=== PATIENT | male | born 1965 | race Two or more races ===

== ENCOUNTER 2024-06-16 09:08 | Outpatient (AMB) | payer BC, SELFPAY ==
[2024-06-16 09:20] VITALS: BP 134/75; PULSE 99; RESP 19; TEMP 36.4; O2SAT 99; BMI 36.4
--- NOTE | 2024-06-16 09:20 | PD.ORTHCLVIS ---
Vital signs 06/16/24 09:20 Height 1.7 m Height Method Stated Weight 105.29 kg Weight Measurement Method Standing Scale BMI 36.4 BP 134/75 H Blood Pressure Source Automatic Cuff Blood Pressure Location Right Upper Arm Position Sitting Respiration 19 Pulse 99 Pulse Source Monitor Temp 97.5 F Temp Source Temporal Artery Scan Pulse Oximetry (%) 99 Oxygen Delivery Method Room Air Med/Allergies Allergies & Medications Allergies No Known Allergies Allergy (Verified 06/16/24 09:23) Medication Reconciliation losartan 100 mg-hydrochlorothiazide 12.5 mg tablet 1 tab PO QDAY 04/06/24 [History Confirmed 06/16/24] meloxicam 15 mg tablet 15 mg PO QDAY 04/06/24 [History Confirmed 06/16/24] metoprolol succinate 25 mg capsule sprinkle, ext. release 24 hr 25 mg PO QDAY 04/06/24 [History Confirmed 06/16/24] acetaminophen 500 mg tablet (Acetaminophen Extra Strength) 1,000 mg (2 x 500 mg) PO Q6H PRN pain #90 tabs 04/11/24 [Rx Confirmed 06/16/24] aspirin 81 mg tablet,delayed release 81 mg PO BID #60 tabs 04/11/24 [Rx Confirmed 06/16/24] doxycycline hyclate 100 mg tablet 100 mg PO BID #14 tabs 04/11/24 [Rx Confirmed 06/16/24] gabapentin 300 mg capsule 300 mg PO .qhs #30 caps 04/11/24 [Rx Confirmed 06/16/24] oxycodone 5 mg tablet 5 mg PO Q6H PRN pain #28 tabs 04/11/24 [Rx Confirmed 06/16/24] sennosides 8.6 mg-docusate sodium 50 mg tablet (Senna-S) 1 tab-cap PO QDAY #30 tabs 04/11/24 [Rx Confirmed 06/16/24] Subjective Visit Visit for: follow up visit and knee (LEFT) Immunization / Flu Flu Vaccine in the Last 12 Months: No Flu Vaccine Exclusion Criteria: No Exclusion Criteria History of Present Illness Chief complaint: Right total knee replacement Patient is doing well status post right total knee replacement. He is 2 months from surgery. Previously had a stitch abscess which was removed and treated with Bactrim. He reports no pain at all and is using no assistive device. We last saw him 2 weeks ago and he reports that within the last week he noticed that the top aspect of his incision has been having issues. He reports that the skin is absent there. He reports that he is still smoking Pain Pain level (0-10): 0 Pain location: inside (medial) Associated signs & symptoms: none Ambulatory data Ambulatory device: none Treatments Improvement with previous injections: No Improvement with PT: No Improvement with NSAIDS: no Review of Systems Review of Systems: All systems negative unless otherwise noted in HPI. Exam Exam Patient is in no acute distress and is cooperative with the examination today. Patient has a normal mood and affect. Breathing is nonlabored. In no respiratory distress. Bilateral extremities were evaluated and demonstrates sensation intact to light touch. Palpable pedal pulses are present. No significant edema is present. Right knee incision demonstrates 2 areas that look quite strange. It almost looks like there is no skin but has underlying soft tissue present. There is no effusion in his knee and he has no pain at all which is quite strange. It almost looks like there is just no skin and it is dry. I wonder if this is a wound healing issue due to the patient's nicotine use. There is no erythema. Assessment and Plan Problem List (1) Status post total right knee replacement: Status: Acute Plan: Patient is a pleasant 59-year-old male status post right total knee replacement. He is doing well functionally. His incision actually looks quite strange. I actually discussed this case with 3 other orthopedic surgeons who all believe that this is either some kind of dermatological reaction to the glue. I am not sure but it does not appear that he has a deep infection as he has no pain. To be safe, we are ordering an ESR and CRP as well as a aspiration of his knee. We are also sending him to wound care. We will consider sending him to a middle school guidance counselor as the incision looks a little. We will hold off on doing his other knee. Office Procedures GNS Level of Care Nursing/Assessment Patient Status: Established Patient Nursing Assessment/Reassesment: Medication Reconciliation, Update PMH in EMR and Vital Signs Coordination of Care: Complex Care and Chronic Disease 1-5, Education Complex Pt/Fam, Consent,records obtained, informed consent, 1 Ins Authorization and Staff clarify orders Established Patient Charge Established Patient Point Assignment: 105 Established Patient Point Charge: EP Level 3 (80-115) Past Medical History Past Medical History Have you ever been diagnosed with any of the following: Neurological Problems Seizures: No Cardiology Problems Congestive Heart Failure: No Hypertension: Yes Respiratory Problems Chronic Obstructive Pulmonary Disease (COPD): No Sleep Apnea: Yes Smoking: No Smoking Cessation Counseling: No Smoking Exposure: No Tobacco Use: No Stomache/Intestinal Problems Obesity: Yes Genital/Urinary Problems Renal Disease: No Musculoskeletal Problems Arthritis: Yes Endocrine Problems Diabetes Mellitus Type 1: No Diabetes Mellitus Type 2: No Other Problems Hospitalization: No Shingles: No Blood Transfusions: No Blood Transfusion Reaction: No Anesthesia Reactions: No Chicken Pox: Yes Cancer: No
== END 2024-06-16 09:32 | disposition home or self-care (01) ==
LOC: HODSRG 09:08
PROVIDERS: PCP Family Medicine; Referring Provider Family Medicine; Supervising Provider Orthopaedic Surgery Adult Reconstructive Orthopaedic Surgery; Visit Provider Orthopaedic Surgery Adult Reconstructive Orthopaedic Surgery
DX: Z96.651 Presence of right artificial knee joint (principal)
CPT/HCPCS: 99213; G0463

== ENCOUNTER 2024-07-15 10:06 | Outpatient (AMB) | payer BC, SELFPAY ==
[2024-07-15 10:26] VITALS: BP 189/92; PULSE 77; RESP 19; TEMP 36.4; O2SAT 99; BMI 37.3
--- NOTE | 2024-07-15 10:26 | ORTHONT_ITS ---
Vital signs 07/15/24 10:26 Height 1.7 m Height Method Stated Weight 107.757 kg Weight Measurement Method Standing Scale BMI 37.3 BP 189/92 H Blood Pressure Source Automatic Cuff Blood Pressure Location Right Upper Arm Position Sitting Respiration 19 Pulse 77 Pulse Source Monitor Temp 97.5 F Temp Source Temporal Artery Scan Pulse Oximetry (%) 99 Oxygen Delivery Method Room Air Med/Allergies Allergies & Medications Allergies No Known Allergies Allergy (Verified 07/15/24 10:27) Medication Reconciliation losartan 100 mg-hydrochlorothiazide 12.5 mg tablet 1 tab PO QDAY 04/06/24 [History Confirmed 07/15/24] meloxicam 15 mg tablet 15 mg PO QDAY 04/06/24 [History Confirmed 07/15/24] metoprolol succinate 25 mg capsule sprinkle, ext. release 24 hr 25 mg PO QDAY 04/06/24 [History Confirmed 07/15/24] acetaminophen 500 mg tablet (Acetaminophen Extra Strength) 1,000 mg (2 x 500 mg) PO Q6H PRN pain #90 tabs 04/11/24 [Rx Confirmed 07/15/24] aspirin 81 mg tablet,delayed release 81 mg PO BID #60 tabs 04/11/24 [Rx Confirmed 07/15/24] doxycycline hyclate 100 mg tablet 100 mg PO BID #14 tabs 04/11/24 [Rx Confirmed 07/15/24] gabapentin 300 mg capsule 300 mg PO .qhs #30 caps 04/11/24 [Rx Confirmed 07/15/24] oxycodone 5 mg tablet 5 mg PO Q6H PRN pain #28 tabs 04/11/24 [Rx Confirmed 07/15/24] sennosides 8.6 mg-docusate sodium 50 mg tablet (Senna-S) 1 tab-cap PO QDAY #30 tabs 04/11/24 [Rx Confirmed 07/15/24] Subjective Visit Visit for: follow up visit, post op #2 and knee (RIGHT) Immunization / Flu Flu Vaccine in the Last 12 Months: No Flu Vaccine Exclusion Criteria: No Exclusion Criteria History of Present Illness Chief complaint: Right total knee replacement Patient is doing well status post right total knee replacement. Patient is 3 months post right total knee replacement is doing fantastic. The incisions healed up wonderfully. He reports the left knee is bothering him and is affecting quality of life and happiness. Send multiple injections and anti- inflammatories Pain Pain level (0-10): 0 Pain location: inside (medial) Associated signs & symptoms: none Ambulatory data Ambulatory device: none Treatments Improvement with previous injections: No Improvement with PT: No Improvement with NSAIDS: no Review of Systems Review of Systems: All systems negative unless otherwise noted in HPI. Exam Exam Patient is in no acute distress and is cooperative with the examination today. Patient has a normal mood and affect. Breathing is nonlabored. In no respiratory distress. Bilateral extremities were evaluated and demonstrates sensation intact to light touch. Palpable pedal pulses are present. No significant edema is present. Right knee incision is clean dry and intact. Left knee demonstrates varus deformity of 10 degrees. There Is significant tenderness to palpation medially The left knee demonstrate significant arthritis with medial joint space loss and osteophytes. There is significant varus deformity Assessment and Plan Problem List (1) Status post total right knee replacement: Status: Acute Plan: Patient is a pleasant 59-year-old male status post right total knee replacement. He is doing well. He had some delayed healing due to eczema and the dermatologic reaction on the right. The right knee is now healed up wonderfully. The left knee is affecting his quality life and happiness. He has tried injections and anti-inflammatories and would like to get this replaced. We thus discussed total knee replacement on the left is a reasonable option The nature and purpose of the total knee replacement, alternative method(s) of treatment, the material risks involved, and the possibility of complications were fully explained to the patient. The patient does NOT have any of the following contraindications to TKA: - Active infection of the knee joint, OR - Active systemic bacteremia, OR - Active skin infection or open wound at surgical site, OR - Neuropathic arthritis, OR - Severe, rapidly progressive neurological disease, OR - Severe medical condition that makes risks of surgery outweigh the potential benefit The patient was told the most common risks and complications associated with a total knee replacement include, but are not limited to: blood clots in the leg, fatal pulmonary embolism, dislocation of the prosthesis, intraoperative and postoperative fractures of the femur or tibia, infection, failure of the prosthesis or grafting materials, complications from anesthesia, reactions to blood transfusions, postoperative leg length inequality, instability of the knee replacement, nerve damage or injury, vascular injury, delayed wound healing, infection, other injury or even . In addition, there are risks associated with anesthesia given during this operation. Also, the patient was told that after undergoing a total knee replacement there may still be persistent pain or disability. The patient was informed that the success of this operation in part depends upon the mechanical devices which are going to be implanted and that these devices can fail or malfunction, and may need to be repaired or replaced and there are no guarantees as to the longevity of this device or its parts and that it or its parts could fail prematurely. The patient was also notified that during the course of surgery, there may be a need to use bone graft from donors, and that any bone graft used will be carefully screened for communicable diseases, including AIDS, hepatitis, Beka-Creutzfeldt, or other diseases, but despite the screening procedures, there is a small chance that they could contract one of these diseases. Finally, the patient was asked to follow completely and fully with all advice and recommended treatments, and that recovery and ultimate outcome are affected by their compliance with recommended treatment. We discussed the risks, benefits and treatment alternatives, and the patient is interested in proceeding with surgery. We will try to set this up as expeditiously as possible. Office Procedures GNS Level of Care Nursing/Assessment Patient Status: Established Patient Nursing Assessment/Reassesment: Medication Reconciliation, Update PMH in EMR and Vital Signs Coordination of Care: Complex Care and Chronic Disease 1-5, Education Complex Pt/Fam, Consent,records obtained, informed consent, Results/Orders obtained and Staff clarify orders Established Patient Charge Established Patient Point Assignment: 95 Established Patient Point Charge: EP Level 3 (80-115) Past Medical History Past Medical History Have you ever been diagnosed with any of the following: Neurological Problems Seizures: No Cardiology Problems Congestive Heart Failure: No Hypertension: Yes Respiratory Problems Chronic Obstructive Pulmonary Disease (COPD): No Sleep Apnea: Yes Smoking: No Smoking Cessation Counseling: No Smoking Exposure: No Tobacco Use: No Stomache/Intestinal Problems Obesity: Yes Genital/Urinary Problems Renal Disease: No Musculoskeletal Problems Arthritis: Yes Endocrine Problems Diabetes Mellitus Type 1: No Diabetes Mellitus Type 2: No Other Problems Hospitalization: No Shingles: No Blood Transfusions: No Blood Transfusion Reaction: No Anesthesia Reactions: No Chicken Pox: Yes Cancer: No
== END 2024-07-15 10:48 | disposition home or self-care (01) ==
LOC: HODSRG 10:06
PROVIDERS: PCP Family Medicine; Referring Provider Family Medicine; Supervising Provider Orthopaedic Surgery Adult Reconstructive Orthopaedic Surgery; Visit Provider Orthopaedic Surgery Adult Reconstructive Orthopaedic Surgery
DX: Z96.651 Presence of right artificial knee joint (principal); I10 Essential (primary) hypertension; G47.30 Sleep apnea, unspecified
CPT/HCPCS: 99213; G0463

== ENCOUNTER → 2024-09-08 | Outpatient (CLI) | payer BC, SELFPAY ==
--- NOTE | 2024-09-08 08:30 | XR_ITS ---
Examination: CT left lower extremity, without contrast. 2-D sagittal reconstructions. 2-D coronal reconstructions. 3-D reconstructions. Date and time of exam:September 08, 2024 at 0824 hours INDICATIONS: Left knee osteoarthritis left knee pain 12 years CTDI: vol (mGy):12.8 DLP: (mGycm):934 Technique: Multiple 1.25 mm axial sections of the left lower extremity without intravenous contrast have been obtained. 2-D sagittal and coronal reconstructions have been obtained. 3-D reconstructions have been obtained. Low dose protocols were performed. One or more of the following dose reduction techniques were used; automated exposure control, adjustment of the mA and/or KV according to patient size, use of iterative reconstruction technique. 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
== END | disposition home or self-care (01) ==
PROVIDERS: PCP Family Medicine; Referring Provider Orthopaedic Surgery Adult Reconstructive Orthopaedic Surgery; Visit Provider Orthopaedic Surgery Adult Reconstructive Orthopaedic Surgery
DX: M17.12 Unilateral primary osteoarthritis, left knee (principal); M25.862 Other specified joint disorders, left knee
CPT/HCPCS: 73700

== ENCOUNTER 2024-09-13 15:21 | Outpatient (AMB) | payer BC, SELFPAY ==
[2024-09-13 15:36] VITALS: BP 174/93; PULSE 98; RESP 18; TEMP 37.1; O2SAT 98; BMI 37.8
--- NOTE | 2024-09-13 15:36 | ORTHONT_ITS ---
Vital signs 09/13/24 15:36 Height 1.7 m Height Method Stated Weight 109.117 kg Weight Measurement Method Standing Scale BMI 37.8 BP 174/93 H Blood Pressure Source Automatic Cuff Blood Pressure Location Right Upper Arm Position Sitting Respiration 18 Pulse 98 Pulse Source Monitor Temp 98.7 F Temp Source Temporal Artery Scan Pulse Oximetry (%) 98 Oxygen Delivery Method Room Air Med/Allergies Allergies & Medications Allergies No Known Allergies Allergy (Verified 09/13/24 15:37) Medication Reconciliation losartan 100 mg-hydrochlorothiazide 12.5 mg tablet 1 tab PO QDAY 04/06/24 [History Confirmed 09/13/24] meloxicam 15 mg tablet 15 mg PO QDAY 04/06/24 [History Confirmed 09/13/24] metoprolol succinate 25 mg capsule sprinkle, ext. release 24 hr 25 mg PO QDAY 04/06/24 [History Confirmed 09/13/24] acetaminophen 500 mg tablet (Acetaminophen Extra Strength) 1,000 mg (2 x 500 mg) PO Q6H PRN pain #90 tabs 04/11/24 [Rx Confirmed 09/13/24] aspirin 81 mg tablet,delayed release 81 mg PO BID #60 tabs 04/11/24 [Rx Confirmed 09/13/24] doxycycline hyclate 100 mg tablet 100 mg PO BID #14 tabs 04/11/24 [Rx Confirmed 09/13/24] gabapentin 300 mg capsule 300 mg PO .qhs #30 caps 04/11/24 [Rx Confirmed 09/13/24] oxycodone 5 mg tablet 5 mg PO Q6H PRN pain #28 tabs 04/11/24 [Rx Confirmed 09/13/24] sennosides 8.6 mg-docusate sodium 50 mg tablet (Senna-S) 1 tab-cap PO QDAY #30 tabs 04/11/24 [Rx Confirmed 09/13/24] Exam Exam Patient is in no acute distress and is cooperative with the examination today. Patient has a normal mood and affect. Breathing is nonlabored. In no respiratory distress. Bilateral extremities were evaluated and demonstrates sensation intact to light touch. Palpable pedal pulses are present. No significant edema is present. Right knee incision is clean dry and intact. Left knee demonstrates varus deformity of 10 degrees. There Is significant tenderness to palpation medially The left knee demonstrate significant arthritis with medial joint space loss and osteophytes. There is significant varus deformity Assessment and Plan Problem List (1) Status post total right knee replacement: Status: Acute Plan: Patient is a pleasant 59-year-old male status post right total knee replacement. He is doing well. He had some delayed healing due to eczema and the dermatologic reaction on the right. The right knee is now healed up wonderfully. The left knee is affecting his quality life and happiness. He has tried injections and anti-inflammatories and would like to get this replaced. We thus discussed total knee replacement on the left is a reasonable option The nature and purpose of the total knee replacement, alternative method(s) of treatment, the material risks involved, and the possibility of complications were fully explained to the patient. The patient does NOT have any of the following contraindications to TKA: - Active infection of the knee joint, OR - Active systemic bacteremia, OR - Active skin infection or open wound at surgical site, OR - Neuropathic arthritis, OR - Severe, rapidly progressive neurological disease, OR - Severe medical condition that makes risks of surgery outweigh the potential benefit The patient was told the most common risks and complications associated with a total knee replacement include, but are not limited to: blood clots in the leg, fatal pulmonary embolism, dislocation of the prosthesis, intraoperative and postoperative fractures of the femur or tibia, infection, failure of the prosthesis or grafting materials, complications from anesthesia, reactions to blood transfusions, postoperative leg length inequality, instability of the knee replacement, nerve damage or injury, vascular injury, delayed wound healing, infection, other injury or even . In addition, there are risks associated with anesthesia given during this operation. Also, the patient was told that after undergoing a total knee replacement there may still be persistent pain or disability. The patient was informed that the success of this operation in part depends upon the mechanical devices which are going to be implanted and that these devices can fail or malfunction, and may need to be repaired or replaced and there are no guarantees as to the longevity of this device or its parts and that it or its parts could fail prematurely. The patient was also notified that during the course of surgery, there may be a need to use bone graft from donors, and that any bone graft used will be carefully screened for communicable diseases, including AIDS, hepatitis, Beka-Creutzfeldt, or other diseases, but despite the screening procedures, there is a small chance that they could contract one of these diseases. Finally, the patient was asked to follow completely and fully with all advice and recommended treatments, and that recovery and ultimate outcome are affected by their compliance with recommended treatment. We discussed the risks, benefits and treatment alternatives, and the patient is interested in proceeding with surgery. We will try to set this up as expeditiously as possible. Office Procedures GNS Level of Care Nursing/Assessment Patient Status: Established Patient Nursing Assessment/Reassesment: Medication Reconciliation, Update PMH in EMR and Vital Signs Coordination of Care: Complex Care and Chronic Disease 1-5, Education Complex Pt/Fam, Consent,records obtained, informed consent, 2-3 Insurance Autorizations needed, Lab and Imaging orders, Results/Orders obtained and Staff clarify orders Established Patient Charge Established Patient Point Assignment: 130 Established Patient Point Charge: Level 4 (120-155) MA Intake Visit Data Collection New Patient or Established: Established Patient (seen at [facility] within 3 years) Reason for Visit:: PRE-OPT Seen by Clinical Staff ONLY (RN/MA): No Verbal consent obtained for Telemed visit?: No Mechanic Foreman Required: No PCP or OBGYN visit in last 3 months: Yes Hx Now: No Do You Feel Safe at Home: Yes Authorities Contacted: N/A Questionairres Past Medical History Past Medical History Have you ever been diagnosed with any of the following: Neurological Problems Seizures: No Cardiology Problems Congestive Heart Failure: No Hypertension: Yes Respiratory Problems Chronic Obstructive Pulmonary Disease (COPD): No Sleep Apnea: Yes Smoking: No Smoking Cessation Counseling: No Smoking Exposure: No Tobacco Use: No Stomache/Intestinal Problems Obesity: Yes Genital/Urinary Problems Renal Disease: No Musculoskeletal Problems Arthritis: Yes Endocrine Problems Diabetes Mellitus Type 1: No Diabetes Mellitus Type 2: No Other Problems Hospitalization: No Shingles: No Blood Transfusions: No Blood Transfusion Reaction: No Anesthesia Reactions: No Chicken Pox: Yes Cancer: No Subjective Visit Visit for: follow up visit and knee Immunization / Flu Flu Vaccine in the Last 12 Months: Yes Flu Vaccine Exclusion Criteria: No Exclusion Criteria History of Present Illness Chief complaint: left knee pain Patient is doing well status post right total knee replacement. He is 2 months from surgery. Previously had a stitch abscess which was removed and treated with Bactrim. He reports no pain at all and is using no assistive device. We last saw him 2 weeks ago and he reports that within the last week he noticed that the top aspect of his incision has been having issues. He reports that the skin is absent there. He reports that he is still smoking Pain Pain level (0-10): 5 Pain duration: ALL DAY Pain location: inside (medial), outside (lateral) and anterior Pain quality: sharp, dull and aching Pain timing: increases with activity Associated signs & symptoms: weakness Ambulatory data Ambulatory device: none Treatments Improvement with previous injections: No Improvement with PT: No Improvement with NSAIDS: no Review of Systems Review of Systems: All systems negative unless otherwise noted in HPI.
== END 2024-09-13 16:23 | disposition home or self-care (01) ==
LOC: HODSRG 15:21
PROVIDERS: PCP Family Medicine; Referring Provider Family Medicine; Supervising Provider Orthopaedic Surgery Adult Reconstructive Orthopaedic Surgery; Visit Provider Orthopaedic Surgery Adult Reconstructive Orthopaedic Surgery
DX: Z96.651 Presence of right artificial knee joint (principal); I10 Essential (primary) hypertension; G47.30 Sleep apnea, unspecified
CPT/HCPCS: 99214; G0463

== ENCOUNTER 2024-10-03 05:50 | Day surgery (SDC) | payer BC, SELFPAY ==
--- NOTE | 2024-09-30 07:41 | EKG_ITS ---
[facility] Test Date: 2024-09-30 Pat Name: CASEY PHILLIP Department: Room: - Gender: Male Last Puller: ROSA : 1965 Requested By: Schuyler Mendoza Order Number: [id number] Reading MD: Schuyler Mendoza Measurements Intervals [place] Rate: 70 P: 41 KS: 219 QRS: 3 QRSD: 92 T: 33 QT: 382 QTc: 415 Interpretive Statements SINUS RHYTHM WITH FIRST DEGREE AV BLOCK WITH OCCASIONAL VENTRICULAR PREMATURE COMPLEXES No previous ECG available for comparison /store/S0/[id number]/[id number]
[2024-09-30 07:42] VITALS: BMI 37.0
[2024-09-30 08:59] LABS: Basophils # (Auto) 0.1 Thou/mm3 (0.0-0.2); Basophils % (Auto) 1 % (0-2.5); Eosinophils # (Auto) 0.1 Thou/mm3 (0.0-0.5); Eosinophils % (Auto) 2 % (0-10); Hemoglobin 13.5 g/dL (13.5-16.0); Immature Granulocytes % (Auto) 2 % (0-0); Immature Granulocytes Auto 0.16 Thou/mm3 (0.00-0.00); Lymphocytes # (Auto) 1.9 Thou/mm3 (1.0-4.8); Lymphocytes % (Auto) 27 % (10-50); Mean Corpuscular HGB Conc 36.5 g/dl (31.0-37.0); Mean Corpuscular Hemoglobin 36.3 pg (25.0-35.0); Mean Corpuscular Volume 100 fL (80-100); Monocytes # (Auto) 0.8 Thou/mm3 (0.0-0.8); Monocytes % (Auto) 11 % (0-12); Neutrophils # (Auto) 3.9 Thou/mm3 (1.8-7.7); Neutrophils % (Auto) 57 % (37-80); Nucleated Red Blood Cell % 0 /100 WBC (0); Platelet Count 214 Thou/mm3 (140-440); Red Blood Count 3.72 Miln/mm3 (4.50-5.90); White Blood Count 6.9 Thou/mm3 (3.8-10.6)
[2024-09-30 09:12] LABS: Alanine Aminotransferase 13 U/L (10-49); Albumin, Serum 4.3 gm/dL (3.5-5.0); Albumin/Globulin Ratio 1.4 (1.2-2.2); Alkaline Phosphatase 77 U/L (46-116); Anion Gap 5 (7-16); Aspartate Amino Transferase 20 U/L (0-34); BUN/Creatinine Ratio 7 Ratio (12-20); Bilirubin,Total 0.8 mg/dL (0.3-1.2); Blood Urea Nitrogen 7 mg/dL (9-23); Calcium 9.2 mg/dL (8.3-10.6); Calcium (Corrected) 9.2 mg/dL (8.5-10.1); Carbon Dioxide 26.6 mMol/L (20.0-31.0); Chloride 93 mMol/L (98-107); Glucose 100 mg/dL (74-106); Osmolality,Calculated 249 (275-295); Sodium 125 mMol/L (136-145); Total Protein 7.3 gm/dL (5.7-8.2); eGFR > 60 See Note
[2024-09-30 09:15] LABS: INR 1.1 (0.9-1.3); Partial Thromboplastin Time 25.9 Seconds (22.0-36.0); Prothrombin Time 11.8 Seconds (9.0-12.2)
--- NOTE | 2024-09-30 14:38 | SUR.PREOP ---
NA level and Cardiac records reviewed with Dr Mendoza.
[2024-10-03] VITALS (19 sets, daily range): BP systolic 110–159; BP diastolic 58–90; PULSE 64–87; RESP 12–20; TEMP 36.1–37; O2SAT 96–100; BMI 36.3
[2024-10-03] MEDS: MELOXICAM 7.5 MG TABLET PO (06:52)
[2024-10-03] MEDS: PREGABALIN 75 MG CAPSULE PO (06:52)
[2024-10-03] MEDS: ACETAMINOPHEN 325 MG TABLET 650 MG PO (06:52)
[2024-10-03] MEDS: RINGERS LACTATED 1000 ML 1,000 ML 20 ML IV (06:53)
--- NOTE | 2024-10-03 09:35 | ESOP_ITS ---
Date of Procedure 10/03/24 Pre Op Diagnosis left knee osteoarthritis Post Op Diagnosis left knee osteoarthritis Procedure left total knee replacement robotic assisted Findings full thickness cartilage loss and osteophytes Procedure Description Indication: The patient is a 59 year old who has a long history of left knee pain. X-rays show degenerative arthritis involving the knee. Over the past several years the patient has had increasing pain, progressive limitation in function. He has failed conservative measures including activity modification, physical therapy, injections, anti-inflammatories, and assistive devices. After a lengthy discussion of the risks and benefits, the patient presents now for total knee replacement. The nature and purpose of the total knee replacement, alternative method(s) of treatment, the material risks involved, and the possibility of complications were fully explained to the patient. The patient was told the most common risks and complications associated with a total knee replacement include, but are not limited to blood clots in the leg, fatal pulmonary embolism, dislocation of the prosthesis, intraoperative and postoperative fractures of the femur or tibia, infection, failure of the prosthesis or grafting materials, complications from anesthesia, reactions to blood transfusions, postoperative leg length inequality, instability of the knee replacement, nerve damage or injury, vascular injury, delayed wound healing, infections, other injury or even . In addition, there are risks associated with anesthesia given during this operation, temporary or permanent numbness on the skin lateral to the incision can be a complication unique to total knee surgery, and kneeling can be painful after knee replacement surgery. Also, the patient was told that after undergoing a total knee replacement there may still be pain or disability. We discussed with the patient that we will be using a robot-assisted technology. We discussed that there is a possibility of converting to manual instrumentation. The patient was informed that the success of this operation in part depends upon the mechanical devices which are going to be implanted and that these devices can fail or malfunction, and may need to be repaired or replaced and there are no guarantees as to the longevity of this device or its part and that it or its parts could fail prematurely. Finally, the patient was asked to follow completely and fully with all advice and recommended treatments, and that recovery and ultimate outcome are affected by their compliance with recommended treatment. Surgical technique: Patient was marked and consented in the pre-operative area. The patient was brought to the operating room and placed on the operating table in a supine position. Prior to positioning, a timeout procedure was performed between the surgeon, the anesthesiologist, and the nursing staff where the patient and the operative side were identified and confirmed. After adequate general anesthetic was obtained, the left lower extremity was prepped and draped in the usual sterile fashion. A weight based dose of Cefazolin were administered within 1 hour prior to incision. The robot was preregistered and calirated before the incision. The extremity was exsanguinated with an esmarch badge and tourniquet inflated to 250mmHg. A midline incision was made. A median parapatellar arthrotomy was made. The patella was subluxed laterally. A medial release was performed to expose the medial tibia. His femoral and tibial pins were placed through an intra incisional manner for both cases. Every effort was made to ensure that the distalmost aspect of the pin was hung in the second cortex. The arrays were then tightened several times to ensure that it was fixed for the remainder of the case. Both femoral and tibial checkpoints were then placed. We then went through the registration process of the bone. We then assessed the knee deformity and attempted to correct it. We also used the robot to aid in judging laxity in both extension and flexion. Final based on laxity and alignment we changed the preoperative assessment to obtain proper proper implant positioning and to correct deformity. Attention was then placed to the tibia. We made a tibial cut using the robot ensuring that both the MCL and the patella tendon were protected with retractors. We then went to the femur and made the posterior cut followed by the anterior cut and the anterior chamfer. The bone was then removed and we made a distal femur cut and a posterior chamfer cut. We verified all cuts. A trial reduction was performed with a size 5 femoral component and a size 5 keeled tibial component. The patella tracked centrally, and no lateral retinacular release was necessary. The trial implants were removed. The arrays, pins, and checkpoints were all removed. We performed a verification that all pins were removed. The cut bone surfaces were lavaged. A size 5 left femoral component, a size 5 keeled tibial component were impacted into position. The knee was felt to be well balanced in the sagittal and coronal plane. The final 5x12 mm cruciate- substituting articular insert was impacted into the tibial tray. The knee was brought out to full extension, flexed up to 120 degrees. It was stable to varus and valgus stress and appropriately balanced in flexion and extension. The wounds were copiously irrigated following deflation of tourniquet. The medial retinaculum was reapproximated with #1 vicryl and quill. The subcutaneous tissues were closed with 0 and 2-0 interrupted Vicryl. The skin was closed with 3-0 Monofilament V loc suture. A sterile dressing was applied. The patient was transferred to a bed and brought to recovery in stable condition. The patient tolerated the procedure well. There were no intraoperative complications. Sponge and needle counts were correct times 2. As the attending surgeon, I attest I was present and performed the entire operation. Grafts/Implants Size 5 CR Femur Size 5 Tibia 12mm poly CS Anesthesia GETA Implants diana Pathology / specimen None Pathology comment: none Estimated Blood Loss 150 Disposition floor Surgeon Brian Parry MD Surgical Staff Operation Date: 10/03/24 07:30 Case Staff ADVISORY APPLICATION DEVELOPER: Chandler Carcamo RNmicrophone operator: Pratima Powers
--- NOTE | 2024-10-03 09:39 | XR_ITS ---
Examination: Left knee 2 views Technique one AP lateral left knee 2 views Exam date and time: October 03, 2024 1008 hours INDICATIONS: Postop knee replacement FINDINGS: Total left knee arthroplasty. Satisfactory alignment No fracture IMPRESSION: Total left knee arthroplasty with satisfactory alignment
--- NOTE | 2024-10-03 09:42 | SUR.PHASEI ---
0942: Pt. AAOx4, vitals stable, breathing unlabored, no complaint of pain or nausea, dressing to left knee CDI, no active bleed noted, bilateral dorsalis pedis pulses strong and regular, cap refill to bilateral feet less than 3 seconds, report received from Chandler DHILLON and Harrison LONG.
--- NOTE | 2024-10-03 13:08 | SUR.PHASEII ---
Report to Kacie LONG
--- NOTE | 2024-10-03 15:30 | SUR.PHASEII ---
1530: Pt. AAOx4, vitals stable, breathing unlabored, no complaint of pain or nausea, dressing to left knee CDI, no active bleed noted, bilateral dorsalis pedis pulses strong and regular, cap refill to bilateral feet less than 3 seconds, pt. tolerated sips of water well, pt. ambulated with PT, tolerated well, gave DC instructions to the pt. and his ride, both verbalized understanding and had no further questions. Pt. left with all personal belongings.
== END 2024-10-03 15:30 | disposition home or self-care (01) ==
PROVIDERS: Anesthesiology; PCP Family Medicine; Referring Provider Orthopaedic Surgery Adult Reconstructive Orthopaedic Surgery; Visit Provider Orthopaedic Surgery Adult Reconstructive Orthopaedic Surgery
PROC: (CPT 27447; principal; 2024-10-03 07:30)
DX: M17.12 Unilateral primary osteoarthritis, left knee (principal); Z01.810 Encounter for preprocedural cardiovascular examination
CPT/HCPCS: 27447; 20985; 36415; 73560; 80053; 85025; 85610; 85730; 93005; 97162; A4217; C1713; C1776; J1100; J2250; J2371; J2704; J2795; J3010; J3490; J7030; J7120; J7999; A4648; A4649; A9270; J1596

== ENCOUNTER 2024-11-11 10:34 | Outpatient (AMB) | payer BC, SELFPAY ==
[2024-11-11 11:18] VITALS: BP 151/81; PULSE 86; RESP 18; TEMP 36.6; O2SAT 98; BMI 37.1
--- NOTE | 2024-11-11 11:18 | PD.ORTHCLVIS ---
Vital signs 11/11/24 11:18 Height 1.7 m Height Method Stated Weight 107.303 kg Weight Measurement Method Standing Scale BMI 37.1 BP 151/81 H Blood Pressure Source Automatic Cuff Blood Pressure Location Right Upper Arm Position Sitting Respiration 18 Pulse 86 Pulse Source Monitor Temp 97.9 F Temp Source Temporal Artery Scan Pulse Oximetry (%) 98 Oxygen Delivery Method Room Air Med/Allergies Allergies & Medications Allergies No Known Allergies Allergy (Verified 11/11/24 11:21) Medication Reconciliation losartan 100 mg-hydrochlorothiazide 12.5 mg tablet 1 tab PO QDAY 04/06/24 [History Confirmed 11/11/24] meloxicam 15 mg tablet 15 mg PO QDAY 04/06/24 [History Confirmed 11/11/24] metoprolol succinate 25 mg capsule sprinkle, ext. release 24 hr 25 mg PO QDAY 04/06/24 [History Confirmed 11/11/24] acetaminophen 500 mg tablet (Acetaminophen Extra Strength) 1,000 mg (2 x 500 mg) PO Q6H PRN pain #90 tabs 10/03/24 [Rx Confirmed 11/11/24] aspirin 81 mg tablet,delayed release 81 mg PO BID #60 tabs 10/03/24 [Rx Confirmed 11/11/24] doxycycline hyclate 100 mg tablet 100 mg PO BID #14 tabs 10/03/24 [Rx Confirmed 11/11/24] gabapentin 300 mg capsule 300 mg PO .qhs #30 caps 10/03/24 [Rx Confirmed 11/11/24] oxycodone 5 mg tablet 5 mg PO Q6H PRN pain #28 tabs 10/03/24 [Rx Confirmed 11/11/24] sennosides 8.6 mg-docusate sodium 50 mg tablet (Senna-S) 1 tab-cap PO QDAY #30 tabs 10/03/24 [Rx Confirmed 11/11/24] Exam Exam Patient is in no acute distress and is cooperative with the examination today. Patient has a normal mood and affect. Breathing is nonlabored. In no respiratory distress. Bilateral extremities were evaluated and demonstrates sensation intact to light touch. Palpable pedal pulses are present. No significant edema is present. Right knee incision is clean dry and intact. Left knee incisions clean dry intact. Range of motion 0 to 105 degrees Assessment and Plan Problem List (1) Status post total right knee replacement: Status: Acute Plan: Patient is a pleasant 59-year-old male status post Left total knee replacement. He is doing well. Pain is well-controlled. We will see him in 6 to 8 weeks for repeat Office Procedures GNS Level of Care Nursing/Assessment Patient Status: Established Patient Nursing Assessment/Reassesment: Medication Reconciliation, Update PMH in EMR and Vital Signs Coordination of Care: Complex Care and Chronic Disease 1-5, Education Complex Pt/Fam, Consent,records obtained, informed consent, Results/Orders obtained and Staff clarify orders Established Patient Charge Established Patient Point Assignment: 95 Established Patient Point Charge: Level 3 (80-115) Questionairres Past Medical History Past Medical History Have you ever been diagnosed with any of the following: Neurological Problems Seizures: No Cardiology Problems Congestive Heart Failure: No Hypertension: Yes Respiratory Problems Chronic Obstructive Pulmonary Disease (COPD): No Sleep Apnea: Yes Smoking: No Smoking Cessation Counseling: No Smoking Exposure: No Tobacco Use: No Stomache/Intestinal Problems Obesity: Yes Genital/Urinary Problems Renal Disease: No Musculoskeletal Problems Arthritis: Yes Endocrine Problems Diabetes Mellitus Type 1: No Diabetes Mellitus Type 2: No Other Problems Hospitalization: No Shingles: No Blood Transfusions: No Blood Transfusion Reaction: No Anesthesia Reactions: No Chicken Pox: Yes Cancer: No Subjective Visit Visit for: follow up visit Immunization / Flu Flu Vaccine in the Last 12 Months: Yes Flu Vaccine Exclusion Criteria: Already Received History of Present Illness Chief complaint: LEFT KNEE F/U Patient is doing well status post Left total knee replacement. He is 6 weeks postop. He is doing well. He reports the pain is minimal at this time. He is working with therapy Pain Pain level (0-10): 5 Pain duration: COMES AND GOES Pain location: inside (medial), outside (lateral), anterior and posterior Pain quality: sharp, dull and aching Pain timing: increases with activity Associated signs & symptoms: none Ambulatory data Ambulatory device: none Treatments Improvement with previous injections: No Improvement with PT: No Improvement with NSAIDS: no Review of Systems Review of Systems: All systems negative unless otherwise noted in HPI.
--- NOTE | 2024-11-11 11:29 | XR_ITS ---
Examination: Bilateral knees 2 views Right lateral knee left lateral knee 2 views Right axial knee left axial knee 2 views INDICATIONS: Bilateral AP knees standing single view Bilateral PA knees standing flexion single view Right lateral knee left lateral knees standing 2 views Right axial knee left axial knee 2 views total 6 views Exam date and time: November 11, 2024 1207 hours INDICATIONS: History bilateral knee replacements, left knee October 03, 2024 right knee April 11, 2024 FINDINGS: Moderate osteopenia. Bilateral total knee arthroplasties with satisfactory alignment Mild widening of the medial right patellofemoral joint No fractures No loosening of the prosthetic components IMPRESSION: Bilateral total knee arthroplasties with satisfactory alignment No loosening of the prosthetic components
== END 2024-11-11 11:34 | disposition home or self-care (01) ==
LOC: HODSRG 10:34
PROVIDERS: PCP Family Medicine; Referring Provider Family Medicine; Supervising Provider Orthopaedic Surgery Adult Reconstructive Orthopaedic Surgery; Visit Provider Orthopaedic Surgery Adult Reconstructive Orthopaedic Surgery
DX: M25.562 Pain in left knee (principal); Z96.653 Presence of artificial knee joint, bilateral; G47.30 Sleep apnea, unspecified; I10 Essential (primary) hypertension
CPT/HCPCS: 73564; 99213; G0463

== ENCOUNTER 2024-12-08 13:09 | Outpatient (AMB) | payer BC, SELFPAY ==
[2024-12-08 13:21] VITALS: BP 162/86; PULSE 90; RESP 18; TEMP 36.3; O2SAT 98; BMI 37.3
--- NOTE | 2024-12-08 13:21 | PD.ORTHCLVIS ---
Vital signs 12/08/24 13:21 Height 1.7 m Height Method Stated Weight 107.983 kg Weight Measurement Method Standing Scale BMI 37.3 BP 162/86 H Blood Pressure Source Automatic Cuff Blood Pressure Location Right Upper Arm Position Sitting Respiration 18 Pulse 90 Pulse Source Monitor Temp 97.4 F Temp Source Temporal Artery Scan Pulse Oximetry (%) 98 Oxygen Delivery Method Room Air Med/Allergies Allergies & Medications Allergies No Known Allergies Allergy (Verified 12/08/24 13:22) Medication Reconciliation losartan 100 mg-hydrochlorothiazide 12.5 mg tablet 1 tab PO QDAY 04/06/24 [History Confirmed 12/08/24] meloxicam 15 mg tablet 15 mg PO QDAY 04/06/24 [History Confirmed 12/08/24] metoprolol succinate 25 mg capsule sprinkle, ext. release 24 hr 25 mg PO QDAY 04/06/24 [History Confirmed 12/08/24] acetaminophen 500 mg tablet (Acetaminophen Extra Strength) 1,000 mg (2 x 500 mg) PO Q6H PRN pain #90 tabs 10/03/24 [Rx Confirmed 12/08/24] aspirin 81 mg tablet,delayed release 81 mg PO BID #60 tabs 10/03/24 [Rx Confirmed 12/08/24] doxycycline hyclate 100 mg tablet 100 mg PO BID #14 tabs 10/03/24 [Rx Confirmed 12/08/24] gabapentin 300 mg capsule 300 mg PO .qhs #30 caps 10/03/24 [Rx Confirmed 12/08/24] oxycodone 5 mg tablet 5 mg PO Q6H PRN pain #28 tabs 10/03/24 [Rx Confirmed 12/08/24] sennosides 8.6 mg-docusate sodium 50 mg tablet (Senna-S) 1 tab-cap PO QDAY #30 tabs 10/03/24 [Rx Confirmed 12/08/24] Exam Exam Patient is in no acute distress and is cooperative with the examination today. Patient has a normal mood and affect. Breathing is nonlabored. In no respiratory distress. Bilateral extremities were evaluated and demonstrates sensation intact to light touch. Palpable pedal pulses are present. No significant edema is present. Right knee incision is clean dry and intact. Left knee incisions clean dry intact. Range of motion 0 to 105 degrees Assessment and Plan Problem List (1) Status post total right knee replacement: Status: Acute Plan: Patient is a pleasant 59-year-old male status post Left total knee replacement. He is doing well. Pain is well-controlled. We will see him in approximately 3 months Office Procedures GNS Level of Care Nursing/Assessment Patient Status: Established Patient Nursing Assessment/Reassesment: Medication Reconciliation, Update PMH in EMR and Vital Signs Coordination of Care: Complex Care and Chronic Disease 1-5, Education Complex Pt/Fam, Consent,records obtained, informed consent, Results/Orders obtained and Staff clarify orders Established Patient Charge Established Patient Point Assignment: 95 Established Patient Point Charge: EP Level 3 (80-115) MA Intake Visit Data Collection New Patient or Established: Established Patient (seen at [facility] within 3 years) Reason for Visit:: F/U XRAYS & POST OP Seen by Clinical Staff ONLY (RN/MA): No Verbal consent obtained for Telemed visit?: No Patent Litigation Associate Required: No PCP or OBGYN visit in last 3 months: Yes Hx Now: No Do You Feel Safe at Home: Yes Authorities Contacted: N/A Questionairres Past Medical History Past Medical History Have you ever been diagnosed with any of the following: Neurological Problems Seizures: No Cardiology Problems Congestive Heart Failure: No Hypertension: Yes Respiratory Problems Chronic Obstructive Pulmonary Disease (COPD): No Sleep Apnea: Yes Smoking: No Smoking Cessation Counseling: No Smoking Exposure: No Tobacco Use: No Stomache/Intestinal Problems Obesity: Yes Genital/Urinary Problems Renal Disease: No Musculoskeletal Problems Arthritis: Yes Endocrine Problems Diabetes Mellitus Type 1: No Diabetes Mellitus Type 2: No Other Problems Hospitalization: No Shingles: No Blood Transfusions: No Blood Transfusion Reaction: No Anesthesia Reactions: No Chicken Pox: Yes Cancer: No Subjective Visit Visit for: post op #2 Immunization / Flu Flu Vaccine in the Last 12 Months: No Flu Vaccine Exclusion Criteria: No Exclusion Criteria History of Present Illness Chief complaint: F/U XRAYS & POST OP Patient is doing well status post Left total knee replacement. He is 12 weeks postop. He is doing well. He reports the pain is minimal at this time. He is working with therapy Personal History Occupation: DIS[employer] Red flag PMH: BMI BMI Counceling provided: Yes Pain Pain level (0-10): 0 Pain duration: COMES AND GOES Pain location: inside (medial), outside (lateral), anterior and posterior Pain quality: sharp, dull and aching Pain timing: increases with activity Associated signs & symptoms: none Ambulatory data Ambulatory device: none Treatments Improvement with previous injections: No Improvement with PT: No Improvement with NSAIDS: no Review of Systems Review of Systems: All systems negative unless otherwise noted in HPI.
== END 2024-12-08 13:33 | disposition home or self-care (01) ==
LOC: HODSRG 13:09
PROVIDERS: PCP Family Medicine; Referring Provider Family Medicine; Supervising Provider Orthopaedic Surgery Adult Reconstructive Orthopaedic Surgery; Visit Provider Orthopaedic Surgery Adult Reconstructive Orthopaedic Surgery
DX: Z96.652 Presence of left artificial knee joint (principal); I10 Essential (primary) hypertension; G47.30 Sleep apnea, unspecified
CPT/HCPCS: 99213; G0463

== ENCOUNTER 2025-03-17 13:33 | Outpatient (AMB) | payer BC, SELFPAY ==
[2025-03-17 13:59] VITALS: BP 137/74; PULSE 85; RESP 18; TEMP 36.9; O2SAT 97; BMI 37.3
--- NOTE | 2025-03-17 13:59 | PD.ORTHCLVIS ---
Vital signs 03/17/25 13:59 Height 1.7 m Height Method Measured Weight 107.983 kg Weight Measurement Method Standing Scale BMI 37.3 BP 137/74 H Blood Pressure Source Automatic Cuff Blood Pressure Location Left Upper Arm Position Sitting Respiration 18 Pulse 85 Pulse Source Monitor Temp 98.5 F Temp Source Temporal Artery Scan Pulse Oximetry (%) 97 Oxygen Delivery Method Room Air Med/Allergies Allergies & Medications Allergies No Known Allergies Allergy (Verified 03/17/25 13:59) Medication Reconciliation losartan 100 mg-hydrochlorothiazide 12.5 mg tablet 1 tab PO QDAY 04/06/24 [History Confirmed 03/17/25] meloxicam 15 mg tablet 15 mg PO QDAY 04/06/24 [History Confirmed 03/17/25] metoprolol succinate 25 mg capsule sprinkle, ext. release 24 hr 25 mg PO QDAY 04/06/24 [History Confirmed 03/17/25] acetaminophen 500 mg tablet (Acetaminophen Extra Strength) 1,000 mg (2 x 500 mg) PO Q6H PRN pain #90 tabs 10/03/24 [Rx Confirmed 03/17/25] aspirin 81 mg tablet,delayed release 81 mg PO BID #60 tabs 10/03/24 [Rx Confirmed 03/17/25] doxycycline hyclate 100 mg tablet 100 mg PO BID #14 tabs 10/03/24 [Rx Confirmed 03/17/25] gabapentin 300 mg capsule 300 mg PO .qhs #30 caps 10/03/24 [Rx Confirmed 03/17/25] oxycodone 5 mg tablet 5 mg PO Q6H PRN pain #28 tabs 10/03/24 [Rx Confirmed 03/17/25] sennosides 8.6 mg-docusate sodium 50 mg tablet (Senna-S) 1 tab-cap PO QDAY #30 tabs 10/03/24 [Rx Confirmed 03/17/25] Office Procedures GNS Level of Care Nursing/Assessment Patient Status: Established Patient Nursing Assessment/Reassesment: Medication Reconciliation, Update PMH in EMR and Vital Signs Coordination of Care: Complex Care and Chronic Disease 1-5, Education Complex Pt/Fam, Consent,records obtained, informed consent, Results/Orders obtained and Staff clarify orders Established Patient Charge Established Patient Point Assignment: 95 Established Patient Point Charge: EP Level 3 (80-115) MA Intake Visit Data Collection New Patient or Established: Established Patient (seen at [facility] within 3 years) Reason for Visit:: POST OP Seen by Clinical Staff ONLY (RN/MA): No Library Acquisitions Technician Required: No PCP or OBGYN visit in last 3 months: Yes Hx Now: No Do You Feel Safe at Home: Yes Authorities Contacted: N/A Questionairres Past Medical History Past Medical History Have you ever been diagnosed with any of the following: Neurological Problems Seizures: No Cardiology Problems Congestive Heart Failure: No Hypertension: Yes Respiratory Problems Chronic Obstructive Pulmonary Disease (COPD): No Sleep Apnea: Yes Smoking: No Smoking Cessation Counseling: No Smoking Exposure: No Tobacco Use: No Stomache/Intestinal Problems Obesity: Yes Genital/Urinary Problems Renal Disease: No Musculoskeletal Problems Arthritis: Yes Endocrine Problems Diabetes Mellitus Type 1: No Diabetes Mellitus Type 2: No Other Problems Hospitalization: No Shingles: No Blood Transfusions: No Blood Transfusion Reaction: No Anesthesia Reactions: No Chicken Pox: Yes Cancer: No Subjective Visit Visit for: follow up visit and knee Immunization / Flu Flu Vaccine in the Last 12 Months: Yes Flu Vaccine Exclusion Criteria: Already Received History of Present Illness Chief complaint: POST OP Personal History Red flag PMH: smoker BMI Counceling provided: Yes Pain Pain level (0-10): 5 Associated signs & symptoms: weakness Ambulatory data Ambulatory device: none Treatments Improvement with previous injections: No Improvement with PT: No Improvement with NSAIDS: no Review of Systems Review of Systems: All systems negative unless otherwise noted in HPI.
== END 2025-03-17 14:04 | disposition home or self-care (01) ==
LOC: HODSRG 13:33
PROVIDERS: PCP Family Medicine; Referring Provider Family Medicine; Supervising Provider Orthopaedic Surgery Adult Reconstructive Orthopaedic Surgery; Visit Provider Orthopaedic Surgery Adult Reconstructive Orthopaedic Surgery
DX: Z51.89 Encounter for other specified aftercare (principal)
CPT/HCPCS: 99213; G0463